=== PATIENT | male | born 1990 | race African-American/Black ===

== ENCOUNTER 2024-02-21 18:02 | Emergency (ER) | payer SELFPAY ==
[~2024-02-21] VITALS: Ht 172.7 cm; Wt 70.0 kg
[2024-02-21 18:12] VITALS: BP 136/84; PULSE 90; RESP 16; TEMP 98.1; O2SAT 99
[2024-02-21] MEDS ORDERED: ACETAMINOPHEN 325MG TABLET PO ONE (18:45)
== END 2024-02-21 21:11 | disposition left against medical advice (07) ==
LOC: EDBD 18:02 → ER 18:02
DX: R51.9 Headache, unspecified (principal); R11.0 Nausea
CPT/HCPCS: 99283